=== PATIENT | male | born 1990 | race Caucasian/White ===

== ENCOUNTER 2017-05-18 10:33 | Emergency (ER) | payer SELFPAY ==
--- NOTE | 2017-05-18 11:33 | EDM.PDOC ---
ED HPI GENERAL MEDICAL PROBLEM - General Chief Complaint: ENT Problem Stated Complaint: ABSESS TOOTH LT SIDE Time Seen by Provider: 05/18/17 11:24 Source of Information: Reports: Patient, Family, RN Notes Reviewed History Limitations: Reports: No Limitations - History of Present Illness INITIAL COMMENTS - FREE TEXT/NARRATIVE: 27-year-old gentleman presents to the emergency department today complaint of dental pain, he was initially evaluated in the dental clinic unfortunately they did not have appointment time for him surgeries referred to the emergency department. He states is been having symptoms for about a week no fevers but he does have facial swelling that is progressively getting worse - Related Data Allergies Allergy/AdvReac Type Severity Reaction Status Date / Time Penicillins Allergy Cannot Verified 05/18/17 11:13 Remember Home Meds: Home Meds NK [No Known Home Meds] 05/18/17 [History] Past Medical History Neurological History: Reports: Seizure Social & Family History - Tobacco Use Smoking Status *Q: Never Smoker - Caffeine Use Caffeine Use: Reports: Soda - Recreational Drug Use Recreational Drug Use: No ED ROS ENT - Review of Systems Review Of Systems: See Below Constitutional: Denies: Fever HEENT: Reports: Dental Pain, Other (Facial swelling) Respiratory: Reports: No Symptoms Cardiovascular: Reports: No Symptoms GI/Abdominal: Reports: No Symptoms : Reports: No Symptoms ED EXAM, ENT - Physical Exam Exam: See Below Text/Narrative:: Mouth mucosa is moist and PE no erythema or exudate nodes up palate tongue is midline uvula is midline a do appreciate some dental trauma tooth #19 he is tender to the touch over tooth #19 Exam Limited By: No Limitations General Appearance: Alert, WD/WN, No Apparent Distress Eye Exam: Bilateral Eye: Normal Inspection Ears: Normal External Exam, Normal Canal, Hearing Grossly Normal, Normal TMs Nose: Normal Inspection, Normal Mucousa, No Blood Head: Normocephalic, Facial Swelling Neck: Normal Inspection, Supple, Non-Tender, Full Range of Motion Respiratory/Chest: No Respiratory Distress, Lungs Clear, Normal Breath Sounds, No Accessory Muscle Use Cardiovascular: Regular Rate, Rhythm, No Murmur Course - Vital Signs Last Recorded V/S: Last Vital Signs Temp 96.9 F 05/18/17 11:15 Pulse 69 05/18/17 11:15 Resp 18 05/18/17 11:15 BP 152/103 H 05/18/17 11:15 Pulse Ox 99 05/18/17 11:15 Departure - Departure Time of Disposition: 11:33 Disposition: Home, Self-Care 01 Condition: Good Clinical Impression: Dental abscess - Discharge Information Referrals: PCP,None [Primary Care Provider] - Additional Instructions: Take full course of antibiotics, please report to the dental clinic tomorrow morning at 8:15 - Assessment/Plan Plan: Assessment Acuity = acute Site and laterality = dental abscess tooth #19 Etiology = probable dental trauma with bacterial cause Manifestations = facial swelling Location of injury = Home Lab values = none Plan Started on clindamycin 300 mg by mouth 4 times a day 10 days ibuprofen as needed for pain control dental referral is set up for tomorrow morning This note was dictated using [employer] voice recognition software please call with any questions on syntax or omer.
== END 2017-05-18 11:47 | disposition home or self-care (01) ==
LOC: JP.ED 10:33
DX: K04.7 Periapical abscess without sinus (principal); Z88.1 Allergy status to other antibiotic agents
CPT/HCPCS: 99283